=== PATIENT | male | born 1965 | race Two or more races ===

== ENCOUNTER 2021-05-05 10:15 | Inpatient (IN) | payer OTHER ==
[~2021-05-05] VITALS: Ht 172.7 cm; Wt 81.6 kg
[2021-05-05] MEDS ORDERED: LOVENOX100 MG/1 M SUBCUTANEO (13:06)
[2021-05-05] MEDS ORDERED: LOTREL 5-20 MG1 CAP PO (13:06)
[2021-05-05] MEDS ORDERED: LIPITOR40 M1 PO (13:06)
[2021-05-15] MEDS ORDERED: PERCOCET 5-3251 EACH PO (12:44)
== END 2021-05-15 13:50 | disposition home or self-care (01) | DRG 331 ==
LOC: O/R 05-12 06:55 → SURG 05-12 06:55 → SURH 05-12 10:15 → SURG 05-12 17:31
PROVIDERS: ADMIT Surgery; ATTEND Surgery
PROC: 0DTP4ZZ Resection of Rectum, Percutaneous Endoscopic Approach (ICD-10-PCS; 2021-05-12)
PROC: 0DBN4ZZ Excision of Sigmoid Colon, Percutaneous Endoscopic Approach (ICD-10-PCS; principal; 2021-05-12 14:00)
DX: C20 Malignant neoplasm of rectum (principal); I10 Essential (primary) hypertension

== ENCOUNTER 2023-01-20 16:27 | Inpatient (IN) | payer OTHER ==
[~2023-01-20] VITALS: Ht 152.4 cm; Wt 173.7 kg
[~2023-01-20 16:27] MED LIST: LIPITOR40 M1 PO; LOTREL 5-20 MG1 CAP PO; LOVENOX100 MG/1 M SUBCUTANEO; PERCOCET 5-3251 EACH PO
--- NOTE | 2023-01-20 16:50 | NUR ---
PTE ALERTA Y ORIENTADO X3 EN AMBULANCIA EN COMPANIA DE PARAMEDICOS TRANSFER DEL [facility] POR OBSTRUCCION INTESTINAL ACEPTADO POR EL DR. GREEN. PTE CON NASOGASTRICO EN FOSA NASAL DERECHA Y SE CONECTA A SUCCION INTERNMITENTE SE OBSERVA SECRECIONES MATI. PTE CANALIZADO EN MANO IZQUIERDA CON ANGIO #20 AREA MISSAEL DE EDEMA Y ENROJECIMIENTO. PTE CON LEVAQUIN 750MG/150ML Y .9NSS. SE MIDEN S/V Y SE UBICA EN K7.
--- NOTE | 2023-01-20 18:17 | NUR ---
SE EDUCA A PTE SOBRE [place] [facility] CH[facility]ST[facility] REFIERE ENTENDER, SE JUNI MUESTRAS DE LABORATORIO UTILIZANDO MEDIDAS ASEPTICAS. PTE CON H/L YA COLOCADO EN BRAZO LT MISSAEL DE EDEMA. SE COLOCA IV FLUIDS Y MEDICAMENTOS LOS CUALES TOLERA. PTE CON TUBO NGT EN FOSSA RT COLOCADO Y CONECTADO A SUCCION INTERMITENTE.
[2023-02-01] MEDS ORDERED: HYOSCYAMINE0.125 M1 SL (16:28)
[2023-02-01] MEDS ORDERED: POLY119PG PO (16:29)
[2023-02-01] MEDS ORDERED: INTESTINEX680 M1 PO (16:30)
== END 2023-02-01 21:49 | disposition home or self-care (01) | DRG 388 ==
LOC: ER 16:27 → SURH 18:18 → SURG 18:18 → SURH 01-22 14:23
PROVIDERS: ADMIT Surgery; ATTEND Surgery
PROC: 0D9670Z Drainage of Stomach with Drainage Device, Via Natural or Artificial Opening (ICD-10-PCS; 2023-01-20)
PROC: 02HV33Z Insertion of Infusion Device into Superior Vena Cava, Percutaneous Approach (ICD-10-PCS; 2023-01-21)
PROC: 8E0ZXY6 Isolation (ICD-10-PCS; 2023-01-24)
PROC: BW211ZZ Computerized Tomography (CT Scan) of Abdomen and Pelvis using Low Osmolar Contrast (ICD-10-PCS; principal; 2023-01-26)
DX: K56.690 Other partial intestinal obstruction (principal); U07.1 COVID-19; C20 Malignant neoplasm of rectum; Z90.49 Acquired absence of other specified parts of digestive tract; Z93.3 Colostomy status; Z95.828 Presence of other vascular implants and grafts; I11.9 Hypertensive heart disease without heart failure; R60.9 Edema, unspecified; E78.5 Hyperlipidemia, unspecified; T66.XXXA Radiation sickness, unspecified, initial encounter

== ENCOUNTER → 2024-10-25 | Emergency (ER) | payer OTHER ==
[~2024-10-25] VITALS: Ht 172.7 cm; Wt 72.6 kg
[~2024-10-25] MED LIST changes: +0.9 % SODIUM CHLORIDE 1,000 ML IV ONE; +HYOSCYAMINE0.125 M1 SL; +INTESTINEX680 M1 PO; +POLY119PG PO; +TAMSULOSIN HCL 0.4 MG CAP PO ONE
[2024-10-25 22:51] LABS: HEMATOCRIT 41.7 % (39.0-48.0); HEMOGLOBIN 14.4 g/dL (13-16.00); MEAN CELL VOLUME 98.2 fL (80.0-100.00); MEAN CORPUSCULAR HEMOGLOBIN 33.8 pg (27.00-32.0); MEAN CORPUSCULAR HGB CONC 34.5 g/dl (32.0-36.0); PLATELET COUNT 197 K/uL (150-450); RED BLOOD COUNT 4.25 M/uL (4.00-6.00); RED CELL DISTRIBUTION WIDTH 13.2 % (11.5-14.5)
[2024-10-25 23:20] LABS: ALBUMIN 3.8 gm/dL (3.4-5.0); BILIRUBIN TOTAL 0.85 mg/dL (0.3-1.2); CALCIUM 9.1 mg/dL (8.5-10.1); GFR 6.27; GLOBULINA 3.8 G/DL (2.4-3.5); POTASSIUM 4.76 mEq/L (3.5-5.1); TOTAL PROTEIN 7.6 gm/dL (6.4-8.2)
[2024-10-25 23:41] LABS: CREATININE SERUM 8.73 mg/dL (0.70-1.30)
[2024-10-26 01:12] LABS: URINE APPEARANCE Clear; URINE BILIRRUBIN Negative (NEGATIVE); URINE BLOOD Small; URINE COLOR Yellow; URINE GLUCOSE Negative (NEGATIVE); URINE KETONE Negative (NEGATIVE); URINE LEUKOCYTE Negative; URINE NITRATE Negative; URINE PROTEIN Negative (NEGATIVE); URINE UROBILINOGEN 0.2 E.U./dl
[2024-10-26 01:15] LABS: URINE BACTERIA 12.2 uL (0.0-1933); URINE EPITHELIAL CELLS 5.2 uL (0.0-38.8); URINE RBC 27.3 uL (0.0-20.8); URINE WBC 11.5 uL (0.0-23.2)
[2024-10-26 01:16] LABS: URINE CAST 0.29 uL (0.0-1.40)
[2024-10-26 05:46] LABS: CALCIUM 9.6 mg/dL (8.5-10.1); GFR 10.45; POTASSIUM 5.28 mEq/L (3.5-5.1)
[2024-10-26 05:57] LABS: CREATININE SERUM 5.61 mg/dL (0.70-1.30)
[2024-10-26 11:10] LABS: ABG PH 7.411 (7.35-7.45); ABG PO2 103.2 mmHg (80-100); ABG pCO2 31.1 mmHg (35-45); SaO2 -3.6 %
[2024-10-26 11:11] LABS: BICARBONATE 20.9 mmol/l (23-25); Tco2 20.9 mmol/l; allen test SATISFACTORY; o2 21 %; puncture site RADIAL RIGHT
[2024-10-26 12:44] LABS: CALCIUM 9.6 mg/dL (8.5-10.1); CREATININE SERUM 3.22 mg/dL (0.70-1.30); GFR 19.84; POTASSIUM 4.3 mEq/L (3.5-5.1)
== END | disposition designated cancer center or children's hospital (05) ==
LOC: ER 19:40
PROVIDERS: General Practice; Preventive Medicine Public Health & General Preventive Medicine
DX: R33.8 Other retention of urine (principal)
CPT/HCPCS: 36415; 51702; 74177; 82803; 96365; 96366; 99285; J7030 ×2; Q9965